=== PATIENT | female | born 1990 | race Two or more races ===

== ENCOUNTER 2019-09-04 15:15 | Inpatient (IN) | payer OTHER ==
[~2019-09-04] VITALS: Ht 165.1 cm; Wt 69.9 kg
[~2019-09-04 15:15] MED LIST: PRENATAL CAPLE1 EACH PO
[2019-10-12] MEDS ORDERED: PEPCID AC20 MG PO (09:19)
[2019-10-12] MEDS ORDERED: PRENATAL TABLE1 EAC1 PO (10:00)
== END 2019-10-14 11:46 | disposition home or self-care (01) | DRG 807 ==
LOC: LDR 10-12 07:55 → OB/GYN 10-12 07:55
PROVIDERS: ADMIT Obstetrics & Gynecology
PROC: 10E0XZZ Delivery of Products of Conception, External Approach (ICD-10-PCS; principal; 2019-10-12)
PROC: 4A1HXCZ Monitoring of Products of Conception, Cardiac Rate, External Approach (ICD-10-PCS; 2019-10-12)
DX: O80 Encounter for full-term uncomplicated delivery (principal); Z37.0 Single live birth; Z3A.39 39 weeks gestation of pregnancy